=== PATIENT | female | born 1980 | race Caucasian/White ===

== ENCOUNTER 2017-10-02 15:20 | Emergency (ER) | payer BC ==
[2017-10-02 15:51] VITALS: BP 153/93
[2017-10-02] MEDS ORDERED: cefTRIAXone VIAL(*) 250 MG VIAL IM ONE (16:33)
[2017-10-02] MEDS ORDERED: Lidocaine 1% INJ* 10 MG/ML 30 ML SDV INJ ONE (16:34)
[2017-10-02] MEDS ORDERED: Azithromycin TAB* 250 MG PO ONE (16:35)
[2017-10-02] MEDS ORDERED: Ondansetron ODT TAB* 4 MG PO ONE (16:35)
--- NOTE | 2017-10-02 16:38 | UC ---
Complaint Female HPI - HPI Summary HPI Summary: has been with new partner for 1 month---just found out he has gonorrhea---she has had burning and vaginal d/c for 1 week---no back pain fevers chills nausea or vomiting - History Of Current Complaint Chief Complaint: UCGU Stated Complaint: PERSONAL Time Seen by Provider: 10/02/17 16:20 Hx Obtained From: Patient Hx Last Menstrual Period: UTERINE ABLATION 4 YEARS AGO ?: No Onset/Duration: Sudden Onset, Lasting Weeks - 1 Timing: Constant Severity Currently: Mild Character: Burning Aggravating Factor(s): Urination Alleviating Factor(s): Nothing Associated Signs And Symptoms: Positive: Vaginal Bleeding/Discharge - Allergies/Home Medications Allergies/Adverse Reactions: Allergies Allergy/AdvReac Type Severity Reaction Status Date / Time No Known Allergies Allergy Verified 10/02/17 15:43 Home Medications: Home Medications Valsartan TAB* [Diovan TAB*] 80 mg PO DAILY 10/02/17 [History Confirmed 10/02/17 ] amLODIPine TAB* [Norvasc 5 mg TAB*] 5 mg PO DAILY 10/02/17 [History Confirmed ] PMH/Surg Hx/FS Hx/Imm Hx Previously Healthy: No Cardiovascular History: Hypertension - Surgical History Surgical History: Yes Surgery Procedure, Year, and Place: UTERINE ABLATION. RENAL CALCULI LIPOTRIPSY - Social History Occupation: Employed Full-time Lives: With Family Alcohol Use: Occasionally Substance Use Type: None Smoking Status (MU): Never Smoked Tobacco Review of Systems Constitutional: Negative Skin: Negative Eyes: Negative ENT: Negative Respiratory: Negative Cardiovascular: Negative Gastrointestinal: Negative Genitourinary: Dysuria, Vaginal/Penile Burning, Vaginal/Penile Discharge Motor: Negative Neurovascular: Negative Musculoskeletal: Negative Neurological: Negative Psychological: Negative Is Patient Immunocompromised?: No All Other Systems Reviewed And Are Negative: Yes Physical Exam Triage Information Reviewed: Yes Appearance: Well-Appearing, No Pain Distress, Well-Nourished Vital Signs: Initial Vital Signs Temp 98 F 10/02/17 15:44 Pulse 65 10/02/17 15:44 Resp 18 10/02/17 15:44 BP 153/93 10/02/17 15:44 Pulse Ox 100 10/02/17 15:44 Vital Signs Reviewed: Yes Eye Exam: Normal Eyes: Positive: Conjunctiva Clear ENT Exam: Normal ENT: Positive: Normal ENT inspection, Hearing grossly normal. Negative: Trismus , Muffled voice, Hoarse voice Dental Exam: Normal Neck exam: Normal Neck: Positive: Supple, Nontender Respiratory Exam: Normal Respiratory: Positive: Chest non-tender, No respiratory distress, No accessory muscle use Cardiovascular Exam: Normal Cardiovascular: Positive: RRR, Pulses Normal, Brisk Capillary Refill Abdomen Description: Positive: Nontender Musculoskeletal Exam: Normal Musculoskeletal: Positive: Strength Intact, ROM Intact Neurological Exam: Normal Neurological: Positive: Alert, Muscle Tone Normal Psychological Exam: Normal Skin Exam: Normal Complaint Female Dx - Course Course Of Treatment: urine testing for STD, treat with rocephin and zithromax, no sex for 2 weeks untill rechecked [facility] - Differential Dx/Diagnosis Provider Diagnoses: Std exposure and treatment Discharge - Sign-Out/Discharge Documenting (check all that apply): Discharge/Admit/Transfer - Discharge Plan Condition: Stable Disposition: HOME Patient Education Materials: Safe Sex (ED), Hypertension (ED) [facility] [Outside] - 2 Weeks [facility] [Outside] - 2 Weeks Merline Kraft MD [Primary Care Provider] - 1 Week (for BP recheck) - Billing Disposition and Condition Condition: STABLE Disposition: Home
[2017-10-02] MEDS ORDERED: Lidocaine 1%* 5 ML VIAL ONE (16:48)
== END 2017-10-02 17:13 | disposition home or self-care (01) ==
LOC: UCCORT 15:20
DX: N89.8 Other specified noninflammatory disorders of vagina (principal); I10 Essential (primary) hypertension; R30.0 Dysuria; Z79.899 Other long term (current) drug therapy; Z20.2 Contact with and (suspected) exposure to infections with a predominantly sexual mode of transmission
CPT/HCPCS: 81003; 87086; 87491; 87591; 96372; 99212; A9270-GY; G0463; J0696